=== PATIENT | male | born 1955 | race Caucasian/White ===

== ENCOUNTER 2021-05-30 08:09 | Emergency (ER) | payer OTHER ==
[~2021-05-30] VITALS: Ht 172.7 cm; Wt 172.4 kg
[2021-05-30] MEDS ORDERED: HYDROCODON-ACE1 EA10 PO (10:21)
[2021-05-30] MEDS ORDERED: ONDANSETRON ODT8 MG PO (10:21)
[2021-05-30] MEDS ORDERED: PEPCID20 MG PO (10:22)
[2021-05-30] MEDS ORDERED: TOVIAZ8 MG PO (10:22)
[2021-05-30] MEDS ORDERED: METFORMIN HCL500 M2 PO (10:23)
[2021-05-30] MEDS ORDERED: ZITHROMAX250 MG PO (16:24)
--- NOTE | 2021-05-31 09:50 | EKG ---
[facility] [address] [facility] [place], [place] [address] Signed Sinus tachycardia Otherwise normal ECG No previous ECGs available Confirmed by JEWELL KWONG MD ([id number] on 05/31/2021 9:50:29 AM Electronically Signed By: JEWELL KWONG MD 05/31/21 0950 PATIENT NAME: CA YOU Electrocardiogram DATE OF : 59 PHYSICIAN: JEWELL KWONG MD REPORT #: [id number] REPORT IS CONFIDENTIAL AND NOT TO BE RELEASED WITHOUT AUTHORIZATION
== END 2021-05-30 17:25 | disposition home or self-care (01) ==
LOC: ED 08:09
DX: R41.3 Other amnesia (principal); J18.9 Pneumonia, unspecified organism; Z88.1 Allergy status to other antibiotic agents; Z79.899 Other long term (current) drug therapy; Z79.891 Long term (current) use of opiate analgesic; Z79.84 Long term (current) use of oral hypoglycemic drugs; Z20.822 Contact with and (suspected) exposure to COVID-19
CPT/HCPCS: 70450; 70496; 71045; 80053; 81001; 83735; 83880; 84484; 85025; 93005; 93010; 99285-25; C9803; G0480; J0456; J0696; J1100; J1200; J2060; J2405; J7030; J7060; U0003